=== PATIENT | male | born 1985 | race Caucasian/White ===

== ENCOUNTER 2016-09-22 08:53 | Emergency (ER) | payer OTHER ==
[~2016-09-22] VITALS: Ht 185.4 cm; Wt 100.7 kg
[~2016-09-22 08:53] MED LIST: ALBUTEROL17 G1 IH; AMOXICILLIN500 MG; FLEXERIL10 MG PO; INHALER; MOTRIN600 MG PO; NAPROSYN500 MG PO; NOHOMEMEDS; PEN-VEE K,VEET500 MG; PEN-VEE K,VEET500 MG PO; REGLAN10 MG PO; TRAMADOL HCL50 MG PO; ULTRAM50 MG PO; VENTOLIN17 GM; VICODIN 5-3001 EACH PO; VICODIN,LORT1 TABLET PO; VITAMIN B12-FO1 EACH PO; ZOFRAN4 MG PO
[2016-09-22] MEDS ORDERED: NAPROSYN500 MG PO (09:50)
[2016-09-22] MEDS ORDERED: CLEOCIN300 MG PO (09:50)
[2016-09-22] MEDS ORDERED: ULTRAM50 MG PO (09:50)
[2016-09-22 10:03] VITALS: BP 154/119
== END 2016-09-22 10:03 | disposition home or self-care (01) ==
LOC: EME 08:53
PROC: 3E0T3BZ Introduction of Anesthetic Agent into Peripheral Nerves and Plexi, Percutaneous Approach (ICD-10-PCS; principal; 2016-09-22)
DX: K04.7 Periapical abscess without sinus (principal); K02.9 Dental caries, unspecified; K03.81 Cracked tooth; R03.0 Elevated blood-pressure reading, without diagnosis of hypertension; F17.200 Nicotine dependence, unspecified, uncomplicated